=== PATIENT | female | born 1980 | race Hispanic/Latino ===

== ENCOUNTER 2017-09-03 12:21 | Observation (INO) | payer OTHER ==
[~2017-09-03] VITALS: Ht 167.6 cm; Wt 83.0 kg
[2017-09-03 14:56] LABS: ABSOLUTE BASOPHIL COUNT 0 /CUMM (0.0-0.2); ABSOLUTE EOSINOPHIL COUNT 0.1 /CUMM (0.0-0.7); ABSOLUTE GRANULOCYTE CT 5.8 /CUMM (1.4-6.5); ABSOLUTE LYMPH COUNT 0.6 /CUMM (1.2-3.4); ABSOLUTE MONOCYTE COUNT 0.3 /CUMM (0.10-0.60); BASOPHIL % 0.2 % (0.0-2.0); EOSINOPHIL % 1.2 % (0-5); MEAN CORPUSCULAR HGB 29.7 PG (27.0-31.0); MEAN CORPUSCULAR HGB CONC 33.2 G/DL (33.0-37.0); MEAN CORPUSCULAR VOLUME 89.3 FL (81.0-99.0); MEAN PLATELET VOLUME 7.2 FL (7.4-10.4); PLATELET COUNT 209 /CUMM (130-400); RBC DISTRIBUTION WIDTH 12.9 % (11.5-14.5); RED BLOOD CELL CT 4.71 /CUMM (4.20-5.40); WHITE BLOOD CELL COUNT 6.8 /CUMM (4.8-10.8)
--- NOTE | 2017-09-03 15:00 | ED GI/GU/ABDOMINAL COMPLAINT ---
History of Present Illness General Chief Complaint: Abdominal Pain/Flank Pain Stated Complaint: ?UTI ABD PAIN Source: patient Exam Limitations: no limitations Allergies Coded Allergies: No Known Allergies (09/03/17) Triage Note: 37F DX WITH UTI TUESDAY, ON ANTIBIOTICS CEPHALEXIN AND NOW NAUSEOUS (NO VOMITING) WITH PELVIC PAIN THAT RADIATES TO LEFT FLANK X3 DAYS. ENDORSES POOR APPETITE. DENIES PAIN WITH URINATION OR HEMATURIA. Triage Nurses Notes Reviewed? yes LMP (ages 10-50): unknown ? N Is pt currently ? No (N) Onset: Gradual Duration: day(s): (3-4), changing over time, continues in ED, getting worse Timing: single episode today Quality/Severity: cramping Severity Numbers: 7 Location: generalized abdomen Radiation: no radiation Activities at Onset: none Prior Abdominal Problems: none Sexually Active: Yes Last Time You Were Sexual: less than 2 months ago No Modifying Factors: none Modifying Factors: Worsens With: palpation. Associated Symptoms: abdominal pain, nausea/vomiting HPI: 37-year-old female past medical history of endometriosis presents for evaluation of abdominal pain and nausea. Patient states symptoms first started 3 or 4 days ago to be getting worse. The pain is located diffusely in her lower abdomen described as cramping. She rates it as a 7 out of 10. The pain is associated with nausea with no vomiting or diarrhea. She is having normal bowel movements. Patient was seen at urgent care 3 days ago and diagnosed with a UTI. She was started on cephalexin but does not feel like she's getting any better. She denies any urinary symptoms. No back pain, fevers. She reports a decreased appetite. She is not taking any medicine for pain. No chest pain or shortness of breath. She does report some white/clear vaginal discharge. She is sexually active. No history of STDs. (Celso Mak) Vital Signs & Intake/Output Vital Signs & Intake/Output Vital Signs Date Time Temp Pulse Resp B/P B/P Pulse O2 O2 Flow FiO2 Mean Ox Delivery Rate 09/03 1658 97.6 81 16 110/60 100 Room Air 09/03 1529 97.9 83 16 123/74 100 Room Air 09/03 1512 Room Air 09/03 1252 99.1 86 16 119/84 98 Room Air Reconcile Medications Docusate Sodium (Colace) 100 MG CAPSULE 1 CAP PO BID PRN CONSTIPATION stool softener available over the counter Ergocalciferol (Vitamin D2) (Vitamin D2) 50,000 UNIT CAPSULE 1 CAP PO QW VITAMIN SUPPORT (Reported) Oxycodone HCl/Acetaminophen (Percocet 5-325 MG Tablet) 5 MG-325 MG TABLET 1-2 TAB PO Q4-6 PRN PRN pain control tylenol alternatively. do not combine. Pantoprazole Sodium 40 MG TABLET.DR 1 TAB PO DAILY DIGESTION (Reported) (Dayanara DUPONT,Mally) Past History Travel History Traveled to [place] past 21 day No Medical History Any Pertinent Medical History? see below for history MEDICAL EDUCATION SPECIALIST/Reproductive: IUD Surgical History Surgical History: none Psychosocial History What is your primary language Dutch Tobacco Use: Never used Family History Hx Contributory? No (Celso Mak) Review of Systems Review of Systems Constitutional: Reports: no symptoms. EENTM: Reports: no symptoms. Respiratory: Reports: no symptoms. Cardiovascular: Reports: no symptoms. GI: Reports: see HPI, abdominal pain, nausea. Genitourinary: Reports: no symptoms. Musculoskeletal: Reports: no symptoms. Skin: Reports: no symptoms. Neurological/Psychological: Reports: no symptoms. Hematologic/Endocrine: Reports: no symptoms. Immunologic/Allergic: Reports: no symptoms. All Other Systems: Reviewed and Negative (Celso Mak) Physical Exam Physical Exam General Appearance: well developed/nourished, no apparent distress, alert, awake Head: atraumatic, normal appearance Eyes: Bilateral: normal appearance, PERRL, EOMI. Ears, Nose, Throat, Mouth: hearing grossly normal, moist mucous membrane Neck: normal inspection, supple, full range of motion Respiratory: normal breath sounds, chest non-tender, no respiratory distress, lungs clear Cardiovascular: regular rate/rhythm, normal peripheral pulses Peripheral Pulses: 2+ radial (R), 2+ radial (L) Gastrointestinal: normal bowel sounds, soft, no organomegaly, tenderness ( DIFFUSE WORSE LLQ, RLQ) Back: normal inspection, normal range of motion, no vertebral tenderness Extremities: normal range of motion Neurologic/Psych: no motor/sensory deficits, awake, alert, oriented x 3 Skin: intact, normal color, warm/dry Core Measures ACS in differential dx? No Sepsis Present: No Sepsis Focused Exam Completed? No (Celso Mak) Progress Differential Diagnosis: appendicitis, biliary colic, bowel obstruction, cholecystitis, diverticulitis, endometritis, gastritis, inflamm bowel dis, kidney stone, ovarian cyst, ovarian torsion, pancreatitis, PID/cervicitis, peptic ulcer, PUD/GERD, SBO, UTI/pyelo Diagnostic Imaging: Viewed by Me: CT Scan. Discussed w/RAD: CT Scan. Radiology Impression: PATIENT: ANA M ISAACS PRESENT AGE: 37 PATIENT ACCOUNT NO: [id number] : 79 LOCATION: [facility] ORDERING PHYSICIAN: Celso VENEGAS SERVICE DATE: 09/03/17 EXAM TYPE: CAT - CT ABD & PELVIS W IV CONTRAST EXAMINATION: CT ABDOMEN AND PELVIS WITH CONTRAST CLINICAL INFORMATION: Right upper quadrant, suprapubic, and right lower quadrant pain for 3 days COMPARISON: Ultrasound abdomen from 07/07/2017 TECHNIQUE: Multidetector volumetric imaging was performed of the abdomen and pelvis following IV administration of 95 mL of Optiray 320 intravenous contrast. Sagittal and coronal reformatted images were obtained on the technologist's workstation. DLP: 436 mGy-cm FINDINGS: LUNG BASES: Mild bilateral lower lobe dependent atelectasis. LIVER, GALLBLADDER, AND BILIARY TREE: The liver is normal in size, shape, and attenuation. No focal hepatic lesion or biliary ductal dilatation is present. The gallbladder is unremarkable with no evidence of radiopaque gallstones, gallbladder wall thickening, or obvious pericholecystic inflammatory changes. PANCREAS: Unremarkable. SPLEEN: Unremarkable. ADRENAL GLANDS: Unremarkable. KIDNEYS AND URETERS: There is a 2 mm stone in the interpolar region of the right kidney. The nephrograms are symmetric. No hydronephrosis. No ureteral dilation or stone. BLADDER: Unremarkable. GASTROINTESTINAL TRACT: The small and large bowel are unremarkable. The appendix is mildly hyperenhancing and enlarged at the tip measuring up to 9 mm. There is mild periappendiceal fat stranding. No free fluid. No pneumoperitoneum. ABDOMINAL WALL: No significant hernia is appreciated. LYMPH NODES: No evidence of mesenteric or retroperitoneal lymphadenopathy. VASCULAR: The abdominal aorta is normal in caliber. PELVIC VISCERA: An IUD is in satisfactory position within the endometrial canal. The left ovarian vein is dilated and demonstrates reflux of contrast. Prominent left parametrial veins are also noted in the pelvis. Findings could be seen with pelvic congestion syndrome. OSSEOUS STRUCTURES: Bilateral L5 pars defects with grade 1 anterolisthesis of L5 on S1. No acute osseous normality. IMPRESSION: Mildly hyperemic and enlarged appendix with subtle periappendiceal inflammation. Findings concerning for early appendicitis. No appendicolith. No evidence of abscess formation or perforation. Small nonobstructive right intrarenal calculus. Dilated and refluxing left ovarian vein and prominent parametrial vessels. These findings could be seen with pelvic congestion syndrome. Bilateral L5 pars defects with grade 1 anterolisthesis of L5 on S1. This critical result was discussed with Celso Gaston MD by telephone at 09/03/2017 4:59 PM and it was ascertained that the content and urgency of the report was understood at the time of direct communication. DICTATED BY: Salina Richardson MD DATE/TIME DICTATED:09/03/171546 CANDLE WICKER:LAKSHMI DATE/ TIME TRANSCRIBED:09/03/171546 CONFIDENTIAL, DO NOT COPY WITHOUT APPROPRIATE AUTHORIZATION. Initial ED EKG: none (Alek VENEGAS,Celso) Plan of Care: Orders Procedure Date/time Status Add-on Test (ER Only) 09/03 1705 Active LIPASE 09/03 1434 Complete C-REACTIVE PROTEIN 09/03 1434 Complete COMPREHENSIVE METABOLIC PANEL 09/03 1434 Complete CBC WITHOUT DIFFERENTIAL 09/03 1434 Complete PARTIAL THROMBOPLASTIN TIME 09/03 1430 Complete PROTHROMBIN TIME 09/03 1430 Complete CULTURE,URINE 09/03 1231 Active URINE 09/03 1231 Complete URINALYSIS 09/03 1231 Complete Laboratory Tests 09/03/17 1450: Anion Gap 11, Estimated GFR > 60, BUN/Creatinine Ratio 20.0, Glucose 109 H, Calcium 9.1, Total Bilirubin 2.3 H, AST 26, ALT 42, Alkaline Phosphatase 65, C- Reactive Prot, Quant 2.2 H, Total Protein 6.9, Albumin 4.0, Globulin 2.9, Albumin/Globulin Ratio 1.4, Lipase 106, CBC w Diff NO MAN DIFF REQ, RBC 4.71, MCV 89.3, MCH 29.7, RDW 12.9, MPV 7.2 L, Gran % 85.2 H, Lymphocytes % 8.6 L, Monocytes % 4.8, Eosinophils % 1.2, Basophils % 0.2, Absolute Granulocytes 5.8, Absolute Lymphocytes 0.6 L, Absolute Monocytes 0.3, Absolute Eosinophils 0.1, Absolute Basophils 0, PUBS MCHC 33.2 09/03/17 1430: PT 13.0 H, INR 1.24 H, APTT 33 09/03/17 1301: Urine Color YEL, Urine Clarity CLEAR, Urine pH 6.0, Ur Specific [place] 1.025, Urine Protein NEG, Urine Ketones TRACE H, Urine Nitrite NEG, Urine Bilirubin NEG, Urine Urobilinogen 1.0, Ur Leukocyte Esterase NEG, Ur Microscopic EXAM NOT REQUIRED, Urine Hemoglobin NEG, Urine Glucose NEG, Urine Test NEGATIVE Microbiology 09/03 1301 URINE ROUT: Urine Culture - RECD Patient seen and evaluated. She is currently afebrile nontoxic appearing. She does have diffuse lower abdominal tenderness. Her urine is clean. She has been taking antibiotics for possible UTI. We'll check a CAT scan and basic blood work. Patient medicated with Toradol and Zofran. CT showing evidence of a possible early appendicitis. Patient is feeling much better after medications. She has an appetite now. No vomiting here. She does not have an elevated white blood cell count. Her CRP is mildly elevated at 2.2. Reevaluation of her abdomen shows right lower quadrant tenderness. Surgery was paged and will see the patient. Surgical be admitting the patient for observation. Patient will be covered with Unasyn. Case discussed with Dr. Nichole she agrees. (Celso Mak) (Dayanara DUPONT,[facility]) Departure Departure Disposition: STILL A PATIENT Condition: Stable Clinical Impression Primary Impression: Acute appendicitis Qualifiers: Acute appendicitis type: unspecified acute appendicitis type Qualified Code: K35.80 - Unspecified acute appendicitis Referrals: Enmanuel Boone MD (PCP/Family) Departure Forms: Customer Survey General Discharge Information Observation Note Spoke With: Joe Llamas DO Physician Advisor Notified: DENITA DUPONT,DALI [facility] Patient In: Non-ED OBS Care Area Rationale for Observation: My rational for observation is as follows [IV antibiotics, IV fluids, nothing by mouth, surgical consult, laparoscopic appendectomy]. (Celso Mak) Departure Prescriptions: Current Visit Scripts Oxycodone HCl/Acetaminophen (Percocet 5-325 MG Tablet) 1-2 TAB PO Q4-6 PRN PRN pain control #36 TAB tylenol alternatively. do not combine. Docusate Sodium (Colace) 1 CAP PO BID PRN CONSTIPATION #30 CAP stool softener available over the counter PA/MACHINE TACK PULLER Co-Sign Statement Statement: ED Attending supervision documentation- [] I saw and evaluated the patient. I have also reviewed all the pertinent lab results and diagnostic results. I agree with the findings and the plan of care as documented in the PA's/MACHINE TACK PULLER's documentation. [X] I have reviewed the ED Record and agree with the PA's/MACHINE TACK PULLER's documentation. [] Additions or exceptions (if any) to the PAs/MACHINE TACK PULLER's note and plan are summarized below: [] (Dayanara DUPONT,Mally)
[2017-09-03] MEDS ORDERED: VITAMIN D250000 UNIT PO (15:10)
[2017-09-03] MEDS ORDERED: CEPHALEXIN250 M2 PO (15:10)
[2017-09-03] MEDS ORDERED: PANTOPRAZOLE SO40 M1 PO (15:11)
[2017-09-03 15:14] LABS: GRANULOCYTE % 85.2 % (42.2-75.2)
--- NOTE | 2017-09-03 17:04 | CT SCAN REPORT ---
EXAMINATION: CT ABDOMEN AND PELVIS WITH CONTRAST CLINICAL INFORMATION: Right upper quadrant, suprapubic, and right lower quadrant pain for 3 days COMPARISON: Ultrasound abdomen from 07/07/2017 TECHNIQUE: Multidetector volumetric imaging was performed of the abdomen and pelvis following IV administration of 95 mL of Optiray 320 intravenous contrast. Sagittal and coronal reformatted images were obtained on the technologist's workstation. DLP: 436 mGy-cm FINDINGS: LUNG BASES: Mild bilateral lower lobe dependent atelectasis. LIVER, GALLBLADDER, AND BILIARY TREE: The liver is normal in size, shape, and attenuation. No focal hepatic lesion or biliary ductal dilatation is present. The gallbladder is unremarkable with no evidence of radiopaque gallstones, gallbladder wall thickening, or obvious pericholecystic inflammatory changes. PANCREAS: Unremarkable. SPLEEN: Unremarkable. ADRENAL GLANDS: Unremarkable. KIDNEYS AND URETERS: There is a 2 mm stone in the interpolar region of the right kidney. The nephrograms are symmetric. No hydronephrosis. No ureteral dilation or stone. BLADDER: Unremarkable. GASTROINTESTINAL TRACT: The small and large bowel are unremarkable. The appendix is mildly hyperenhancing and enlarged at the tip measuring up to 9 mm. There is mild periappendiceal fat stranding. No free fluid. No pneumoperitoneum. ABDOMINAL WALL: No significant hernia is appreciated. LYMPH NODES: No evidence of mesenteric or retroperitoneal lymphadenopathy. VASCULAR: The abdominal aorta is normal in caliber. PELVIC VISCERA: An IUD is in satisfactory position within the endometrial canal. The left ovarian vein is dilated and demonstrates reflux of contrast. Prominent left parametrial veins are also noted in the pelvis. Findings could be seen with pelvic congestion syndrome. OSSEOUS STRUCTURES: Bilateral L5 pars defects with grade 1 anterolisthesis of L5 on S1. No acute osseous normality. IMPRESSION: Mildly hyperemic and enlarged appendix with subtle periappendiceal inflammation. Findings concerning for early appendicitis. No appendicolith. No evidence of abscess formation or perforation. Small nonobstructive right intrarenal calculus. Dilated and refluxing left ovarian vein and prominent parametrial vessels. These findings could be seen with pelvic congestion syndrome. Bilateral L5 pars defects with grade 1 anterolisthesis of L5 on S1. This critical result was discussed with Celso Gaston MD by telephone at 09/03/2017 4:59 PM and it was ascertained that the content and urgency of the report was understood at the time of direct communication.
[2017-09-03 17:22] LABS: PTT 33 SEC (25-37)
--- NOTE | 2017-09-03 19:18 | Admission Core Measures ---
Acute Coronary Syndrome (CM) ACS Core Measures Acute Coronary Syndrome Diagnosis No Congestive Heart Failure (NEW) CHF Core Measures Congestive Heart Failure Diagnosis No Cerebrovascular Accident (NEW) CVA Core Measures CVA/TIA Diagnosis No Venous Thromboembolism VTE Core Anoop (View Protocol) VTE Risk Factors Immobility No Mechanical VTE Prophylaxis d/t N/A MechProphylax Ordered No VTE Pharm Prophylaxis d/t Surgical Contraindication Problem List As ranked by this Provider includes Assessment & Plan 1. Acute appendicitis HOME MEDS Home Med List Cephalexin 250 MG CAPSULE 1 CAP PO 4 TIMES/DAY ANTIBIOTIC, INFECTION ( Reported) Ergocalciferol (Vitamin D2) (Vitamin D2) 50,000 UNIT CAPSULE 1 CAP PO QW VITAMIN SUPPORT (Reported) Pantoprazole Sodium 40 MG TABLET.DR 1 TAB PO DAILY DIGESTION (Reported)
--- NOTE | 2017-09-03 19:32 | History & Physical Pre-Op ---
Naz Marroquin 09/03/171917: General Information and HPI MD Statement: I have seen and personally examined ANA M ISAACS and documented this H&P. The patient is a 37 year old F who presented with a patient stated chief complaint of [ABDOMINAL PAIN]. Source of Information: patient History of Present Illness: Ana M is a 37 year old female who presents today with a chief complaint of abdominal pain. She states that her symptoms began approximately 3-4 days ago. Quality of pain was craming, she did have one episode of emesis two days ago. She presented to an urgent care and was diagnosed with a UTI three days ago. She was given a small dose of keflex po. She did not feel that she had any resolution of her symptoms while on keflex. Her pain has worsened, and she states that she feels it more in her right lower quadrant. Her exam was signficant for RLQ pain with deep palpation. She had a CT scan while here in hospital which showed some mild inflammation at tip of appendix with mild fat stranding. PMH is significant for endometriosis and GERD No PSH Current medications: Protonix, IUD NKDA Allergies/Medications Allergies: Coded Allergies: No Known Allergies (09/03/17) Home Med list Cephalexin 250 MG CAPSULE 1 CAP PO 4 TIMES/DAY ANTIBIOTIC, INFECTION ( Reported) Ergocalciferol (Vitamin D2) (Vitamin D2) 50,000 UNIT CAPSULE 1 CAP PO QW VITAMIN SUPPORT (Reported) Pantoprazole Sodium 40 MG TABLET.DR 1 TAB PO DAILY DIGESTION (Reported) Past History Medical History Gastrointestinal: GERD FIXING CARPENTER/Reproductive: endometriosis, IUD Surgical History Pertinent Surgical History: none Past Family/Social History Psychosocial History Where Do You Live? Home Who Do You Live With? spouse Services at Home None Review of Systems Review of Systems Constitutional: Reports: chills. EENTM: Reports: no symptoms. Cardiovascular: Reports: no symptoms. Respiratory: Reports: no symptoms. GI: Reports: abdominal pain, constipation, nausea, vomiting. Genitourinary: Reports: dysuria. Musculoskeletal: Reports: no symptoms. Skin: Reports: no symptoms. Neurological/Psychological: Reports: no symptoms. Hematologic/Endocrine: Reports: no symptoms. Immunologic/Allergic: Reports: no symptoms. All Other Systems: Reviewed and Negative Exam & Diagnostic Data Last 24 Hrs of Vital Signs/I&O Vital Signs Date Time Temp Pulse Resp B/P B/P Pulse O2 O2 Flow FiO2 Mean Ox Delivery Rate 09/03 1855 97.3 78 17 118/57 100 Room Air 09/03 1658 97.6 81 16 110/60 100 Room Air 09/03 1529 97.9 83 16 123/74 100 Room Air 09/03 1512 Room Air 09/03 1252 99.1 86 16 119/84 98 Room Air Intake & Output 09/03 1600 09/03 0800 09/03 0000 Intake Total Output Total Balance Patient 183 lb Weight Weight Reported by Patient Measurement Method Physical Exam: General: Alert and oriented x3, no acute distress Cardiac: RRR, s1s2 Pulm: C T A bilaterally ABD: Non-distended, +bs, pain with palpation of rlq Extremities: Moves all extremities, distal sensation intact, skin warm and well perfused. DP pulses palpable bialterally. Bilateral calves soft and non-tender Last 24 Hrs of Labs/Woody: Laboratory Tests 09/03/17 1450: Anion Gap 11, Estimated GFR > 60, BUN/Creatinine Ratio 20.0, Glucose 109 H, Calcium 9.1, Total Bilirubin 2.3 H, AST 26, ALT 42, Alkaline Phosphatase 65, C- Reactive Prot, Quant 2.2 H, Total Protein 6.9, Albumin 4.0, Globulin 2.9, Albumin/Globulin Ratio 1.4, Lipase 106, CBC w Diff NO MAN DIFF REQ, RBC 4.71, MCV 89.3, MCH 29.7, RDW 12.9, MPV 7.2 L, Gran % 85.2 H, Lymphocytes % 8.6 L, Monocytes % 4.8, Eosinophils % 1.2, Basophils % 0.2, Absolute Granulocytes 5.8, Absolute Lymphocytes 0.6 L, Absolute Monocytes 0.3, Absolute Eosinophils 0.1, Absolute Basophils 0, PUBS MCHC 33.2 09/03/17 1430: PT 13.0 H, INR 1.24 H, APTT 33 09/03/17 1301: Urine Color YEL, Urine Clarity CLEAR, Urine pH 6.0, Ur Specific [place] 1.025, Urine Protein NEG, Urine Ketones TRACE H, Urine Nitrite NEG, Urine Bilirubin NEG, Urine Urobilinogen 1.0, Ur Leukocyte Esterase NEG, Ur Microscopic EXAM NOT REQUIRED, Urine Hemoglobin NEG, Urine Glucose NEG, Urine Test NEGATIVE Microbiology 09/03 1301 URINE ROUT: Urine Culture - RECD Diagnostic Data Other Results PATIENT: ANA M ISAACS PRESENT AGE: 37 PATIENT ACCOUNT NO: [id number] : 79 LOCATION: [facility] ORDERING PHYSICIAN: Celso VENEGAS SERVICE DATE: 09/03/177269 EXAM TYPE: CAT - CT ABD & PELVIS W IV CONTRAST EXAMINATION: CT ABDOMEN AND PELVIS WITH CONTRAST CLINICAL INFORMATION: Right upper quadrant, suprapubic, and right lower quadrant pain for 3 days COMPARISON: Ultrasound abdomen from 07/07/2017 TECHNIQUE: Multidetector volumetric imaging was performed of the abdomen and pelvis following IV administration of 95 mL of Optiray 320 intravenous contrast. Sagittal and coronal reformatted images were obtained on the technologist's workstation. DLP: 436 mGy-cm FINDINGS: LUNG BASES: Mild bilateral lower lobe dependent atelectasis. LIVER, GALLBLADDER, AND BILIARY TREE: The liver is normal in size, shape, and attenuation. No focal hepatic lesion or biliary ductal dilatation is present. The gallbladder is unremarkable with no evidence of radiopaque gallstones, gallbladder wall thickening, or obvious pericholecystic inflammatory changes. PANCREAS: Unremarkable. SPLEEN: Unremarkable. ADRENAL GLANDS: Unremarkable. KIDNEYS AND URETERS: There is a 2 mm stone in the interpolar region of the right kidney. The nephrograms are symmetric. No hydronephrosis. No ureteral dilation or stone. BLADDER: Unremarkable. GASTROINTESTINAL TRACT: The small and large bowel are unremarkable. The appendix is mildly hyperenhancing and enlarged at the tip measuring up to 9 mm. There is mild periappendiceal fat stranding. No free fluid. No pneumoperitoneum. ABDOMINAL WALL: No significant hernia is appreciated. LYMPH NODES: No evidence of mesenteric or retroperitoneal lymphadenopathy. VASCULAR: The abdominal aorta is normal in caliber. PELVIC VISCERA: An IUD is in satisfactory position within the endometrial canal. The left ovarian vein is dilated and demonstrates reflux of contrast. Prominent left parametrial veins are also noted in the pelvis. Findings could be seen with pelvic congestion syndrome. OSSEOUS STRUCTURES: Bilateral L5 pars defects with grade 1 anterolisthesis of L5 on S1. No acute osseous normality. IMPRESSION: Mildly hyperemic and enlarged appendix with subtle periappendiceal inflammation. Findings concerning for early appendicitis. No appendicolith. No evidence of abscess formation or perforation. Small nonobstructive right intrarenal calculus. Dilated and refluxing left ovarian vein and prominent parametrial vessels. These findings could be seen with pelvic congestion syndrome. Bilateral L5 pars defects with grade 1 anterolisthesis of L5 on S1. This critical result was discussed with Celso Gaston MD by telephone at 09/03/2017 4:59 PM and it was ascertained that the content and urgency of the report was understood at the time of direct communication. DICTATED BY: Salina Richardson MD DATE/TIME DICTATED:09/03/171546 WORKGROUP LEADER:LAKSHMI DATE/TIME TRANSCRIBED:09/03/171546 CONFIDENTIAL, DO NOT COPY WITHOUT APPROPRIATE AUTHORIZATION. <Electronically signed in Other Vendor System> SIGNED BY: Salina Richardson MD 09/03/17 3999 Assessment/Plan Assessment/Plan: This is a 37 year old female with a H signficant for GERD and endometriosis. She has a 3-4 day history of vague abdominal pain with one episode of emesis 3 days ago. She was seen at an urgent care and diagnosed with a uti for which she was given a low dose of keflex. She reports worsening of symptoms. Since arrival to ER, her symptoms have somewhat subsided, although she does endorse pain with palpation of RLQ. She did have a CT scan suggestive of early appendicits. -Place in observation status overnight -IV fluids: D5 1/2NS at 75/hr -Send Urine for C&S -NPO -Recheck cbc in am -Unasyn q6 hours -If symptomatic in am, will bring to OR for laparoscopic appendectomy -Will bring to OR sooner if symptoms worsen overnight This plan was discussed with Dr. Llamas As Ranked By This Provider Problem List: 1. Acute appendicitis Joe Llamas DO 09/04/17 1141: Attending MD Review Statement Attending Statement Attending MD Statement: examined this patient, discuss w/resident/PA/PEDIATRIC ASSISTANT, agreed w/resident/PA/PEDIATRIC ASSISTANT, discussed with family, reviewed images Attending Assessment/Plan: Patient seen and examined, agree with above. Not a typical presentation for acute appendicitis. Pain just migrated to RLQ a day ago. Pain never severe. AVSS. Abd-soft, +RLQ tenderness. CT scan ?early appendicitis. Labs ok. Given persistent RLQ pain and CT findings of an irregular appendix I believe patient would benefit from a Lap Appy. NPO/IVF/IV abx, plan for Lap Appy today. D/W family.
[2017-09-03 22:11] VITALS: BP 108/64
[2017-09-04 06:19] VITALS: BP 102/60
[2017-09-04 08:16] LABS: ABSOLUTE BASOPHIL COUNT 0 /CUMM (0.0-0.2); ABSOLUTE EOSINOPHIL COUNT 0.1 /CUMM (0.0-0.7); ABSOLUTE LYMPH COUNT 1.3 /CUMM (1.2-3.4); MEAN CORPUSCULAR HGB 30.4 PG (27.0-31.0); MEAN PLATELET VOLUME 7.6 FL (7.4-10.4)
[2017-09-04 08:33] LABS: ABSOLUTE GRANULOCYTE CT 1.9 /CUMM (1.4-6.5); ABSOLUTE MONOCYTE COUNT 0.3 /CUMM (0.10-0.60); BASOPHIL % 0.3 % (0.0-2.0); EOSINOPHIL % 3.5 % (0-5); GRANULOCYTE % 52.8 % (42.2-75.2); HEMATOCRIT 37.4 % (37-47); MEAN CORPUSCULAR HGB CONC 34.1 G/DL (33.0-37.0); PLATELET COUNT 195 /CUMM (130-400); RBC DISTRIBUTION WIDTH 13.3 % (11.5-14.5); RED BLOOD CELL CT 4.21 /CUMM (4.20-5.40); WHITE BLOOD CELL COUNT 3.7 /CUMM (4.8-10.8)
--- NOTE | 2017-09-04 08:33 | PN- General Surgery ---
Subjective Subjective: Reports "headache" and back pain. Denies abdominal pain, but admits to some soreness. No nausea. Denies chills/sweats. Voiding without difficulty. +bm uneventful this morning. Recent oral antibiotic use for "uti" prior to coming in. Objective Vital Signs and I&Os Vital Signs Date Time Temp Pulse Resp B/P B/P Pulse O2 O2 Flow FiO2 Mean Ox Delivery Rate 09/04 0619 98.7 83 18 102/60 98 Room Air 09/03 2211 98.8 75 18 108/64 99 Room Air 09/03 2008 97.3 80 17 111/63 100 Room Air 09/03 1855 97.3 78 17 118/57 100 Room Air 09/03 1658 97.6 81 16 110/60 100 Room Air 09/03 1529 97.9 83 16 123/74 100 Room Air 09/03 1512 Room Air 09/03 1252 99.1 86 16 119/84 98 Room Air Intake & Output 09/04 1600 09/04 0800 09/04 0000 09/03 1600 09/03 0800 09/03 0000 Intake Total 800 350 Output Total 200 Balance 800 150 Intake, IV 800 350 Intake, Oral 0 0 Output, Urine 200 Patient 183 lb 183 lb Weight Weight Reported by Patient Measurement Method Physical Exam: General - alert & oriented x 3. comfortable. no acute distress. Lungs - clear bilaterally. no w/r/r. Cardiac - s1s2. reg. Abdomen - soft. mild right lower quadrant tenderness. no evidence of peritonitis. Extremities - warm bilaterally. no c/c/e. calves soft and nontender b/l. Current Medications: Current Medications Sig/Jorje Start time Last Medication Dose Route Stop Time Status Admin Acetaminophen 1,000 MG Q6P PRN 09/03 1915 AC 09/04 N/A 1 UNIT IV 0816 Ampicillin Sodium/ 3,000 MG Q6 09/039 AC 09/04 Sulbactam Sodium IV 0527 Sodium Chloride 100 ML Ampicillin Sodium/ 3,000 MG ONCE ONE 09/03 1845 DC 09/03 Sulbactam Sodium IV 09/03 Sodium Chloride 100 ML Dextrose/Sodium 1,000 ML .[id number] 09/03 1915 09/03 Chloride IV 2054 Ketorolac 0 .STK-MED ONE 09/03 1521 DC Tromethamine .ROUTE Ketorolac 30 MG ONCE ONE 09/03 1500 DC 09/03 Tromethamine IV 09/03 1501 1527 Morphine Sulfate 2 MG Q2P PRN 09/03 1915 AC IV Ondansetron HCl 4 MG Q8P PRN 09/03 1915 AC IV Ondansetron HCl 0 .STK-MED ONE 09/03 1521 DC .ROUTE Ondansetron HCl 4 MG ONCE ONE 09/03 1500 DC 09/03 IV 09/03 1501 1527 Pantoprazole Sodium 40 MG DAILY 09/04 1000 AC 09/04 IV 0816 Results Last 48 Hours of Labs: Laboratory Tests 09/04 09/03 09/03 0653 1450 1430 Chemistry Sodium (137 - 145 mmol/L) Pending 142 Potassium (3.5 - 5.1 mmol/L) Pending 3.8 Chloride (98 - 107 mmol/L) Pending 106 Carbon Dioxide (22 - 30 mmol/L) Pending 25 Anion Gap (5 - 16) Pending 11 BUN (7 - 17 mg/dL) Pending 12 Creatinine (0.5 - 1.0 mg/dL) Pending 0.6 Estimated GFR (>60 ml/min) > 60 BUN/Creatinine Ratio (7 - 25 %) Pending 20.0 Glucose (65 - 99 mg/dL) 109 H Calcium (8.4 - 10.2 mg/dL) 9.1 Total Bilirubin (0.2 - 1.3 mg/dL) 2.3 H AST (14 - 36 U/L) 26 ALT (9 - 52 U/L) 42 Alkaline Phosphatase (<127 U/L) 65 C-Reactive Prot, Quant (<1.0 mg/dL) 2.2 H Total Protein (6.3 - 8.2 g/dL) 6.9 Albumin (3.5 - 5.0 g/dL) 4.0 Globulin (1.9 - 4.2 gm/dL) 2.9 Albumin/Globulin Ratio (1.1 - 2.2 %) 1.4 Lipase (23 - 300 U/L) 106 Coagulation PT (9.4 - 12.5 SEC) 13.0 H INR (0.90 - 1.19) 1.24 H APTT (25 - 37 SEC) 33 Hematology CBC w Diff Pending NO MAN DIFF REQ WBC (4.8 - 10.8 /CUMM) Pending 6.8 RBC (4.20 - 5.40 /CUMM) Pending 4.71 Hgb (12.0 - 16.0 G/DL) Pending 14.0 Hct (37 - 47 %) Pending 42.0 MCV (81.0 - 99.0 FL) Pending 89.3 MCH (27.0 - 31.0 PG) Pending 29.7 RDW (11.5 - 14.5 %) Pending 12.9 Plt Count (130 - 400 /CUMM) Pending 209 MPV (7.4 - 10.4 FL) Pending 7.2 L Gran % (42.2 - 75.2 %) 85.2 H Lymphocytes % (20.5 - 51.1 %) 8.6 L Monocytes % (1.7 - 9.3 %) 4.8 Eosinophils % (0 - 5 %) 1.2 Basophils % (0.0 - 2.0 %) 0.2 Absolute Granulocytes (1.4 - 6.5 /CUMM) 5.8 Absolute Lymphocytes (1.2 - 3.4 /CUMM) 0.6 L Absolute Monocytes (0.10 - 0.60 /CUMM) 0.3 Absolute Eosinophils (0.0 - 0.7 /CUMM) 0.1 Absolute Basophils (0.0 - 0.2 /CUMM) 0 PUBS MCHC (33.0 - 37.0 G/DL) Pending 33.2 09/03 1301 Urines Urine Color (YEL,AMB,STR) YEL Urine Clarity (CLEAR) CLEAR Urine pH (5.0 - 8.0) 6.0 Ur Specific [place] (1.001 - 1.035) 1.025 Urine Protein (NEG,<30 MG/DL) NEG Urine Ketones (NEG) TRACE H Urine Nitrite (NEG) NEG Urine Bilirubin (NEG) NEG Urine Urobilinogen (0.1 - 1.0 EU/dl) 1.0 Ur Leukocyte Esterase (NEG) NEG Ur Microscopic EXAM NOT REQUIRED Urine Hemoglobin (NEG) NEG Urine Glucose (N MG/DL) NEG Urine Test NEGATIVE Assessment/Plan Assessment/Plan This 37 year old female was placed in observation status overnight for abdominal pain rule out acute appendicitis currently npo / ivf iv unasyn for possible appendicitis f/u cbc with ongoing right lower quadrant tenderness, will likely need to be explored laparoscopically for likely appendicitis ongoing observation status until plan of care further defined, which may be known post-op will d/w Core Measures Venous Thromboembolism VTE Risk Factors Immobility No Mechanical VTE Prophylaxis d/t N/A MechProphylax Ordered No VTE Pharm Prophylaxis d/t Surgical Contraindication
--- NOTE | 2017-09-04 10:42 | Patient Discharge Instructions ---
Discharge Instructions General Discharge Information You were seen/treated for: abdominal pain, appendicitis You had these procedures: laparoscopic appendectomy (09/04/17) Watch for these problems: fever>101.3, increased pain, redness/swelling/drainage No bath, but you may shower: Yes Other wound care: ok to remove bandaids. leave white steri strips in place. keep incisions clean & dry. Diet Continue normal diet: Yes Recommended Diet: Regular Activity Full Activity/No Limits: No Activity Self Limited: Yes Pounds, do NOT lift more than: 10 Other activity limits: no heavy lifting. no strenuous activity. Acute Coronary Syndrome Inclusion Criteria At DC or during hospital stay patient has or had the following: ACS DIAGNOSIS No Discharge Core Measures Meds if any: Prescribed or Continued at Discharge Meds if any: NOT Prescribed or Continued at Discharge Congestive Heart Failure Inclusion Criteria At DC or during hospital stay patient has or had the following: CHF DIAGNOSIS No Discharge Core Measures Meds if any: Prescribed or Continued at Discharge Meds if any: NOT Prescribed or Continued at Discharge Cerebrovascular accident Inclusion Criteria At DC or during hospital stay patient has or had the following: CVA/TIA Diagnosis No Discharge Core Measures Meds if any: Prescribed or Continued at Discharge Meds if any: NOT Prescribed or Continued at Discharge Venous thromboembolism Inclusion Criteria VTE Diagnosis No VTE Type NONE VTE Confirmed by (Test) NONE Discharge Core Measures - Per Current guidelines, there needs to be overlap - treatment for the first 5 days of Warfarin therapy. - If discharged on Warfarin prior to 5 days of - overlap therapy, the patient will need to be - assessed for post discharge needs including - *Post discharge parental anticoagulation - *Warfarin and/or parental anticoagulation education - *Follow up date to check INR post discharge At least 5 days overlap therapy as Inpatient No Meds if any: Prescribed or Continued at Discharge Note: Overlap Therapy is Warfarin and Anticoagulant Meds if any: NOT Prescribed or Continued at Discharge
--- NOTE | 2017-09-04 10:52 | Surg Short-stay <48hrs Dis Sum ---
Visit Information Visit Dates Admission Date: 09/03/17 Discharge Date: 09/04/17 Surgical Short Stay DC Summary Admission Diagnosis: abdominal pain r/o acute appendicitis Final Diagnosis: same as above Procedure(s): laparoscopic appendectomy (09/04/17) Summary/Significant Findings: Placed in observation status when she came into the ED 09/03/17 with abdominal pain for overnight observation. Taken to the OR on 09/04/17 for ongoing right lower quadrant tenderness. Appreciated early appendicitis in the laparoscopic exploration, for which the appendix was removed. Pain control transitioned from iv to oral medication. Diet was advanced as tolerated. Discharged to home when pain controlled and tolerating diet. Condition at Discharge: stable Discharge Disposition: home or self care Discharge instructions provided to patient/family: Yes Post discharge follow-up plan: two week follow up with Copies to: Paolo DUPONT,Enmanuel
[2017-09-04] MEDS ORDERED: COLACE100 M1 PO (11:47)
[2017-09-04] MEDS ORDERED: PERCOCET 5-3251 EACH PO (11:47)
--- NOTE | 2017-09-04 11:49 | Operative Report ---
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 Patient was found to have a questionable early appendicitis on the CT scan. Patient did have right lower quadrant pain. Given the on, presentation for appendicitis the patient was admitted and observed overnight. The following morning patient remained with right lower quadrant tenderness. I discussed with the patient that given the overall findings she should have a diagnostic laparoscopy and probable laparoscopic appendectomy. All risks including but not limited to bleeding, infection, and injury to surrounding structures were discussed in detail. I did explain that given the uncommon nature of presentation for appendicitis, her symptoms may not be solely related to the appendix. The patient understood everything and decided to proceed. Operative/Procedure Note Note: The patient was brought to the operating room and placed on the table in supine position. Venodyne stockings were placed and adequate general endotracheal anesthesia was obtained. The patient was prepped and draped in standard surgical fashion. Began the procedure by making a 2 cm transverse incision in the infraumbilical crease. Incision was carried down to the fascia. Once the fascia was clearly visualized it was picked up between 2 Surjit clamps and divided in the midline. Once we entered the peritoneum 2 stay 0 Vicryl sutures were placed on each side and a 12 mm blunt port was inserted. The abdominal cavity was insufflated to 15 mmHg. And a 10 mm 30 laparoscope was introduced. Upon initial examination no obvious gross pathology was seen, some hyperemia and inflammatory reaction was noted in the right lower quadrant. Accessory trocars were placed, both 5 mm, one in the left lower quadrant and one suprapubic. Ascending colon was identified and traced proximally, terminal ileum was identified, and we did note the appendix coursing into the pelvis. The base of the appendix was identified and appeared healthy. Distal appendix was markedly dilated and hyperemic with some surrounding inflammatory changes. Using blunt dissection and harmonic scalpel the appendix was carefully dissected away from surrounding structures. Once the appendix was away from the omentum and the sidewall the mesoappendix was divided using Harmonic scalpel maintaining hemostasis until the appendiceal base was clearly visualized and freely up in the air. At that point we switched to a 5 mm laparoscope and a 45 mm nobles Endo ANGELA load was inserted and the base was transected. The appendix was placed in an Endobag and removed through the umbilical trocar site. The abdominal cavity was reinsufflated and we switched back to a 10 mm laparoscope. Staple line was examined and some bleeding was noted, that was controlled using endoclips. No other abnormalities were noted. The pelvis and the right lower quadrant were irrigated until clear. All ports were removed under direct visualization, no obvious bleeding was noted. The umbilical trocar site was closed using 0 Vicryl suture. The skin was closed using 4-0 Monocryl. Steri-Strips and dressings were placed. The patient was successfully extubated and transferred to the recovery room in stable condition. The patient tolerated procedure well with no complications. Findings: Dilated/hyperemic appendix, some surrounding inflammatory changes, non- perforated CC: Paolo DUPONT,Enmanuel
[2017-09-04 14:44] VITALS: BP 102/80
== END 2017-09-04 18:15 ==
LOC: ERH 12:21 → ERHI 18:35 → ENRESERV 20:06 → 2NB 20:19 → ENPENDDIS 09-04 12:27 → 2NB 09-04 18:15
PROVIDERS: Nurse Practitioner; Physician Assistant Medical
DX: K35.80 Unspecified acute appendicitis (principal); R10.9 Unspecified abdominal pain; K21.9 Gastro-esophageal reflux disease without esophagitis
CPT/HCPCS: 6040; 36415; 74177; 81003; 81025; 82436; 87086; 96372; 96374; 96375; 96376; C9399; G0378; J0131; J1100; J1644; J1885; J2405; J7042